=== PATIENT | male | born 1965 | race Hispanic/Latino ===

== ENCOUNTER 2019-06-16 10:57 | Outpatient (CLI) | payer BC ==
--- NOTE | 2019-06-16 11:24 | RAD ---
Abdomen 2 views HISTORY: Abdominal pain. FINDINGS: Gas and stool overlie the colon and rectum. No differential air-fluid levels or evidence of free subdiaphragmatic gas. No stones are reliably demonstrated over the course of either urinary tract. Phleboliths project over the pelvis. IMPRESSION: Nonspecific bowel gas pattern. No significant abnormalities are demonstrated.
== END 2019-06-16 10:58 | disposition home or self-care (01) ==
LOC: BICRAD 10:57
PROVIDERS: ATTEND Internal Medicine
DX: R10.819 Abdominal tenderness, unspecified site (principal)
CPT/HCPCS: 74019

== ENCOUNTER 2023-03-05 14:43 | Emergency (ER) | payer OTHER, BC ==
[2023-03-05] MEDS ORDERED: Ibuprofen 200 MG TAB ONE ×2 (15:40→15:42)
== END 2023-03-05 16:30 | disposition home or self-care (01) ==
LOC: ERS 14:43
DX: S39.012A Strain of muscle, fascia and tendon of lower back, initial encounter (principal); S16.1XXA Strain of muscle, fascia and tendon at neck level, initial encounter; V49.9XXA Car occupant (driver) (passenger) injured in unspecified traffic accident, initial encounter
CPT/HCPCS: 72072